=== PATIENT | female | born 1985 | race Two or more races ===

== ENCOUNTER 2018-04-17 05:49 | Inpatient (IN) | payer MEDICAID ==
[2018-04-17] VITALS (23 sets, daily range): BP systolic 90–138; BP diastolic 54–118; Ht 160 cm; Wt 97.1 kg
[~2018-04-17] VITALS: Ht 160 cm; Wt 97.1 kg
[2018-04-17] MEDS ORDERED: METOCLOPRAMIDE 10 MG/2 ML SDV IVP ONE (06:00)
[2018-04-17] MEDS ORDERED: FAMOTIDINE 20 MG/50 ML PREMIX IVPB ONE (06:00)
[2018-04-17] MEDS ORDERED: cefOXitin/DEX(*) 2GM/50ML PREM 50 ML IVPB ONE (06:00)
[2018-04-17] MEDS ORDERED: ONDANSETRON 4 MG/2 ML VIAL ONE (06:44)
[2018-04-17] MEDS ORDERED: MORPHINE PF 5 MG/10 ML AMP ONE (06:44)
[2018-04-17] MEDS ORDERED: fentaNYL CITR 100 MCG/2 ML AMP ONE (06:44)
[2018-04-17] MEDS ORDERED: OXYTOCIN 10 UNIT/ML SDV ONE (06:44)
[2018-04-17] MEDS: LR(*) 1000 ML BAG 1,000 ML IV SCH ×3 (07:03→08:54)
[2018-04-17 07:15] LABS: PLATELET COUNT, AUTOMATED 166 K/uL (150-450)
[2018-04-17] MEDS ORDERED: KETOROLAC 30 MG/ML VIAL ONE (07:17)
--- NOTE | 2018-04-17 07:30 | History & Physical ---
History of Present Illness Age of Patient: 33 : 4 Para or TPAL: 3 EDC per LMP: Apr 24, 2017 Estimated Gestational Age: 39.1 Chief Complaint Planned c/s History of Present Illness Presents for scheduled c/s, repeat. uncomplicated to date. Past Medical, Surgical, Family and Obstetric Histories reviewed. Please see ACOG chart. History Allergies: Coded Allergies: No Known Drug Allergies (Unverified , 04/17/18) Review of Systems All Systems Reviewed/Normal: Yes, Except as Noted Exam General Exam General Apperance: Alert/Awake/No Acute Distress Neuro: No Gross deficits Cardiovascular: Regular Rate and Rhythm Respiratory: No Respiratory Distress, Clear to Auscultation Abdomen: Soft, Non-Tender, Non-Distended Psychological: Alert & Oriented X3, Appropriate Mood & Affect Fetus FHT Category: I Medical Decision Making Data Points Result Diagram: 04/17/18 0658 VTE Prophylasis: Adult Deep Vein Thrombosis/Pulmonary: No Pharmacological Contraindicati: Pt at Low Risk for VTE Mechanical Contraindications: Pt at Low Risk for VTE Assessment and Plan Problems: (1) 39 weeks gestation of (2) Previous delivery affecting Assessment & Plan: planned . Reviewed r/b/a and questions answered. DANNI CASSIDY MD Apr 17, 2018 07:30
[2018-04-17] MEDS ORDERED: FAMOTIDINE(*) 20MG/50ML PREMIX 50 ML IVPB PRN (07:31)
[2018-04-17] MEDS ORDERED: OXYTOCIN 30 UNIT/D5LR 500 ML 500 ML IV PRN (07:31)
[2018-04-17] MEDS ORDERED: DLR(*) 1000 ML BAG 1,000 ML IV PRN (07:31)
[2018-04-17] MEDS ORDERED: LANOLIN OINT 7 GM TUBE TP PRN (07:35)
[2018-04-17] MEDS ORDERED: PROMETHAZINE 25 MG/ML 1 ML AMP IVP PRN (07:35)
[2018-04-17] MEDS ORDERED: ONDANSETRON 4 MG/2 ML VIAL IV PRN (07:35)
[2018-04-17] MEDS ORDERED: FLUSH 10 ML SYR IVP PRN (07:35)
[2018-04-17] MEDS ORDERED: METOCLOPRAMIDE 10 MG/2 ML SDV IV PRN (07:35)
[2018-04-17] MEDS ORDERED: ePHEDrine 25 MG/5 ML DISP.SYR IVP ONE (08:05)
[2018-04-17] MEDS: DOCUSATE CALCIUM 240 MG CAP PO SCH ×2 (09:00→20:48)
[2018-04-17] MEDS: FAMOTIDINE 20 MG TAB PO SCH ×2 (09:00→20:48)
--- NOTE | 2018-04-17 09:06 | Post Operative Note ---
Operative Note - [facility] Operative Day Date: Apr 17, 2018 Time: 08:52 Physicians Surgeon: Gertrudis Spanish Linguist: Rachana Davison Anesthesia: spinal Diagnosis Pre-Op Diagnosis: previous c/s 39 weeks Post-Op Diagnosis: same Procedure Findings: vtx Procedure(s): RLTCS Specimen Removed:(Maybe N/A): #[id number] Complications: none Fluids Fluids: 800 ml Estimated Blood Loss: 500 ml Dictated Date OP Note Dictated: Apr 17, 2018 Time OP Note Dictated: 08:53 Copies to: DANNI CASSIDY MD ; DANNI CASSIDY MD Apr 17, 2018 09:06
--- NOTE | 2018-04-17 09:27 | Anesthesia OB Pre-Anes Eval ---
History of Present Illness Anesthesia Start Date: Apr 17, 2018 Anesthesia Start Time: 07:33 OB Anesthesia Diagnosis: repeat c/section : 2 Para: 1 Pain Ratin Result Diagram: 04/17/18 0658 Height (Inches): 63 Weight (Pounds): 214 BMI (kg/m2): 37.90 Past Medical History Medical History: no pertinent history Surgical History: Previous Anesthesia: spinal Attended Childbirth Classes?: No Hx Anesthesia Reactions: No Hx Family Anesthesia Reaction: No Allergies: Coded Allergies: No Known Drug Allergies (Unverified , 04/17/18) Anesthesia OB ROS Neurological: No migraines/headaches, No seizures, No neuropathy, No other Eyes ROS: contacts in ENT: Denies Tooth caps, Denies Loose teeth, Denies Chipped teeth, Denies Dentures, Denies Bridges, Denies Retainers, Denies Veneers, Denies Implants, Denies Tongue ring, Denies Other Pulmonary: No asthma, No smoker (pks/day/yrs), No other Airway Class: lll Cardiovascular ROS: No edema, No arrhythmia, No other GI ROS: NPO Last Solids Date: Apr 16, 2018 Last Solids Time: 19:30 ROS: No Herpes, No STD(s), No Liver Disease, No Renal Disease, No Other Endocrine ROS: No diabetes, No gestational diabetes, No thyroid disorder, No other Musculoskeletal ROS: No low back pain, No low back injury, No scoliosis, No other ASA Classification: 2 Assessment and Plan Anesthesia Plan: CLARISSE Anesthesia Stop Day: Apr 17, 2018 Anesthesia Stop Time: 09:18 GELY FERNANDEZ CRNA Apr 17, 2018 09:27
--- NOTE | 2018-04-17 10:10 | OPERATIVE REPORT 1 ---
EVENT DATE: April 17, 2018 SURGEON: Brian Caba MD ANESTHESIA: Spinal, Tuyet Lucero CRNA [employer]AFE [employer]ULT SERVICE MECHANIC: KWAKU Chapman PREOPERATIVE DIAGNOSES 1. Previous section. 2. 39-weeks intrauterine . POSTOPERATIVE DIAGNOSES 1. Previous section. 2. 39-weeks intrauterine . PROCEDURE PERFORMED Repeat low transverse section via Pfannenstiel skin incision. ESTIMATED BLOOD LOSS 500 cc's. FLUIDS 800 cc's. IV CRYSTALLOID/URINE OUTPUT 150. FINDINGS Male , cephalic, right occiput anterior position. Apgars 9 and 9. Normal appearing uterus, tubes and ovaries. PROCEDURE IN DETAIL The patient was brought to the operating room with a working IV and placed in the dorsal supine position. After spinal anesthetic was placed and moved to the leftward tilt, she was then prepped and draped in the usual sterile fashion. Using a knife, a Pfannenstiel skin incision was made and the previous scar was dissected out. This was carried through to the underlying rectus fascia. This was nicked in the midline and extended laterally using the Miranda scissors. The rectus fascia was dissected off underlying rectus muscles using sharp dissection and then the rectus muscles were in the midline. The peritoneum was entered sharply and extended superiorly and inferiorly and blunt lateral traction was performed to extend this incision. Bladder blade was inserted. The vesicouterine peritoneum was entered sharply and extended laterally and a bladder flap was created digitally. This exposed the lower uterine segment of the uterus. The bladder blader was reinserted, moving the bladder away from the operative area. Using a scalpel, a low transverse incision was made and carried through to the intraamniotic space. There was clear fluid upon the amniotomy. The incision was extended using blunt lateral traction. A hand was inserted, the 's head was elevated to the incision and fundal pressure was applied. The infant's head delivered atraumatically. The mouth and nose were bulb suctioned and further fundal pressure affected delivery of the shoulders and the remainder of the followed. The mouth and nose were again bulb suctioned. The cord was clamped and cut and the was passed to the awaiting resuscitation team. Cord sample was obtained. The placenta was delivered manually. The uterus was then exteriorized and cleared of all clots and debris. Chatterjee clamps were placed for hemostasis while the uterine repair was performed with a #1 Monocryl in a running locking stitch. A second suture of the same type was used to imbricate the first layer, completing a two layer closure. This was hemostatic upon completion. Therefore, the pelvis was irrigated clear of clots and debris. The uterus was returned to the abdomen. Bilateral pelvic gutters were irrigated and swept clear of clots and debris. The parietal peritoneum was then closed using a 3-0 Vicryl in a running nonlocking stitch. Rectus muscles were reapproximated in the midline with the same stitch. The muscles bellies were irrigated and swept clear of clots and debris. A few capillary bleeders were cauterized. The rectus fascia was then repaired using an 0 Vicryl in a running and nonlocking stitch. Subcuticular space was irrigated and swept clear of clots and debris. Capillary bleeders were cauterized. The space was closed with a 3-0 Vicryl Plus in a running nonlocking stitch. The skin incision was repaired with 4-0 Monocryl simple subdermal and covered with Dermabond skin adhesive. She tolerated the procedure well. Sponge, lap, needle and instrument counts were all correct x3. She was taken to recovery in stable condition. JEREMIAH
[2018-04-17] MEDS: SIMETHICONE 80 MG CHEW CHEW SCH ×4 (13:00→20:48)
[2018-04-17] MEDS ORDERED: KETOROLAC 30 MG/ML VIAL IVP SCH ×2 (13:30→23:00)
[2018-04-17] MEDS ORDERED: IBUPROFEN 800 MG TAB PO SCH (17:15)
[2018-04-17] MEDS: KETOROLAC 30 MG/ML VIAL IVP SCH (23:02)
[2018-04-18 04:02] VITALS: BP 100/68
[2018-04-18] MEDS: KETOROLAC 30 MG/ML VIAL IVP SCH (05:13)
[2018-04-18 07:03] LABS: PLATELET COUNT, AUTOMATED 183 K/uL (150-450)
[2018-04-18] MEDS: FAMOTIDINE 20 MG TAB PO SCH (08:38)
[2018-04-18] MEDS: DOCUSATE CALCIUM 240 MG CAP PO SCH (08:38)
[2018-04-18] MEDS: SIMETHICONE 80 MG CHEW CHEW SCH (08:38)
--- NOTE | 2018-04-18 10:26 | OB/GYN Progress Note ---
OB Subjective Progress Notes Subjective Feeling well. Pain controlled and ambulating. Tolerates regular diet. GI: NEG Nausea : Voiding Well (padgett just removed) Pain: Mild OB Objective Physical Exam Vital Signs Date Time Temp Pulse Resp B/P (MAP) Pulse Ox O2 Delivery O2 Flow Rate FiO2 04/18/18 08:43 98.0 96 94 Nasal Cannula 0.7 04/18/18 04:02 18 100/68 (79) Intake and Output 04/18/18 07:00 Intake Total 2050 ml Output Total 6000 ml Balance -3950 ml Intake Oral 0 ml IV Total 2050 ml Output Urine Total 5500 ml Estimated Blood Loss 500 ml General Appearance: Alert/Awake/No Acute Distress Neurological: No Gross deficits Cardiovascular: Normal Rhythm & Peripheral Pulses, Regular Rate and Rhythm Respiratory: No Respiratory Distress, Clear to Auscultation Abdomen: Soft, Non-Tender, Non-Distended Incision: Clean, Dry, Intact, Dermabond Integumentary: Skin Intact without Lesions or Rash Psychological: Alert & Oriented X3, Appropriate Mood & Affect Result Diagram: 04/18/18 0611 Assessment and Plan STRUCTURAL ENGINEER Plan: Routine Post- Care, Routine Post-Op Care Problems: (1) 39 weeks gestation of (2) Previous delivery affecting (3) Other specified aftercare following surgery Assessment & Plan: ambulate today and pain control. Her baby will be transfe rred later so may discharge later today. DANNI CASSIDY MD Apr 18, 2018 10:26
[2018-04-18] MEDS ORDERED: IBUP800T37 PO (10:28)
[2018-04-18] MEDS ORDERED: PER PO (10:28)
--- NOTE | 2018-04-18 10:31 | OB/GYN Discharge Summary ---
Discharge Summary Reason for Hosp/Final Diag: (1) 39 weeks gestation of (2) Previous delivery affecting (3) Other specified aftercare following surgery Lates Vital Signs Vital Signs Date Time Temp Pulse Resp B/P (MAP) Pulse Ox O2 Delivery O2 Flow Rate FiO2 04/18/18 08:43 98.0 96 94 Nasal Cannula 0.7 04/18/18 04:02 18 100/68 (79) Weight (Pounds): 214 Result Diagram: 04/18/18610 Condition: Improved Discharge: Home, Self Shelter Meds Active Scripts Oxycodone/Acetaminophen (OXYCODONE/ACETAMINOPHEN 5MG/325 MG) 5 Mg/325 Mg Tab, 1- 2 TAB PO Q4H PRN for PAIN, #20 TAB 0 Refills Prov:DANNI CABA MD 04/18/18 Ibuprofen (IBUPROFEN) 800 Mg Tablet, 800 MG PO Q8H PRN for PAIN, #30 TAB 0 Refills Prov:DANNI CABA MD 04/18/18 Follow up Referrals: [facility] - In Two Weeks @ [facility] with DANNI CABA MD Follow up with: Dr. Caba [phone] Follow up in: 6 wks PP or PO Discharge Diet: As Tolerates Discharge Activity: As Tolerates, No Heavy Lifting x 6 wks, No Heavy Lifting > 10lb, Pelvic Rest Copies to: DANNI CABA MD ; DANNI CABA MD Apr 18, 2018 10:31
[2018-04-18] MEDS ORDERED: IBUPROFEN 800 MG TAB PO SCH (11:00)
[2018-04-18] MEDS ORDERED: DIPHTH/TETANUS/ACEL. PERTUSSIS IM ONLY ONE (12:10)
--- NOTE | 2018-04-18 12:28 | Anesthesia Post Eval Note ---
Anesthesia Post Eval Note Vital Signs Date Time Temp Pulse Resp B/P (MAP) Pulse Ox O2 Delivery O2 Flow Rate FiO2 04/18/18 10:00 Nasal Cannula 04/18/18 08:43 98.0 96 94 0.7 04/18/18 04:02 18 100/68 (79) Pt able to participate in Eval: Yes Cardiovascular Status: Satisfactory Respiratory Status: Satisfactory Pain Managment: Satisfactory PO Nausea/Vomiting: Satisfactory Temperature Management: Satisfactory Mental Status: Satisfactory, Alert, Oriented X3 Post-Op Hydration Status: Satisfactory, Tolerating PO Well, Voiding w/o Difficulty Anesthesia Type: SAB Anesthesia Tolerance: Tolerated procedure well without apparent anesthetic complications. LP site clear, no redness or edema. Denies headache or any residual paresthesia. Vital Signs Stable, Patient comfortable and condition stable. Pt. states she had moderate "itching" but improved today. TIO BROWNE CRNA Apr 18, 2018 12:28
[2018-04-18 12:34] VITALS: BP 111/78
[2018-04-19] MEDS ORDERED: INFLUENZA VIRUS VAC 0.5ML SYR IM ONLY ONE (07:35)
== END 2018-04-18 14:05 | disposition home or self-care (01) | DRG 788 ==
LOC: OB 05:49
PROVIDERS: ADMIT Obstetrics & Gynecology; ATTEND Obstetrics & Gynecology
PROC: 10D00Z1 Extraction of Products of Conception, Low, Open Approach (ICD-10-PCS; principal; 2018-04-17 07:30)
DX: O34.211 Maternal care for low transverse scar from previous cesarean delivery (principal); O99.824 Streptococcus B carrier state complicating childbirth; Z3A.39 39 weeks gestation of pregnancy; Z37.0 Single live birth; Z23 Encounter for immunization
CPT/HCPCS: 36415; 85025; 86703; 86850; 86900; 86901; 90715; J0694; J1885; J2270; J2405; J2590; J2765; J3010; J3490; J7120